=== PATIENT | female | born 1945 | race Caucasian/White ===

== ENCOUNTER 2022-11-30 11:24 | Inpatient (IN) | payer OTHER ==
[~2022-11-30] VITALS: Ht 157.5 cm; Wt 60.9 kg
[~2022-11-30 11:24] MED LIST: ARICEPT10 M1 PO; ATIVAN0.5 MG PO; BENADRYL ALLERG25 M5 PO; CHAMOSYN OINTMEN5 GM T; COMPLETE ALLERG25 M2 PO; DIOVAN HCT 1601 EACH PO; DULCOLAX10 M1 R; HYDR25T PO; LOSARTAN POTAS100 M1 PO; MILK OF MA400 MG/5 M PO; NICOTINE PATCH1 EAC2 TD; REXULTI1 MG PO; ROSUVASTATIN CA40 MG PO; TYLENOL325 M1 PO; VENT7GM INH; VITAMIN D3250 MC1 PO
[2022-11-30 11:25] VITALS: BP 92/56
[2022-11-30 12:41] LABS: POTASSIUM 5.1 mmol/L (3.4-5.1); TOTAL PROTEIN 6.5 gm/dL (6.0-8.0)
[2022-11-30] MEDS ORDERED: LOSARTAN POTAS100 M1 PO (14:47)
[2022-11-30 16:00] VITALS: BP 116/63
[2022-11-30 16:58] LABS: BILIRUBIN Negative (Negative); BLOOD Negative (Negative); CLARITY Clear (Clear); COLOR Yellow (Yellow); GLUCOSE Negative (Negative); KETONE Negative (Negative); LEUKO ESTERASE Negative (Negative); NITRITE Negative (Negative)
[2022-11-30 17:16] LABS: BACTERIA 1+; MUCOUS 2+
[2022-11-30 20:00] VITALS: BP 112/44
[2022-12-01] VITALS: BP 122/54
[2022-12-01 06:57] LABS: BASO % 0.3 % (0.0-1.0); EOS % 0.3 % (1.0-4.0); HEMATOCRIT 32.1 % (37.0-47.0); LYMPH # 1.7 10*3/uL (1.3-4.4); LYMPH % 14.6 % (27.0-41.0); MEAN CELL VOLUME 92.8 fl (81.0-99.0); MEAN CORPUSCULAR HGB 30.1 pg (27.0-31.0); MEAN CORPUSCULAR HGB CONC 32.4 g/dl (33.0-37.0); MEAN PLATELET VOLUME 9.1 fl (9.6-12.3); MONO # 0.7 10*3/uL (0.1-1.0); MONO % 6.4 % (3.0-9.0); NEUT # 8.9 10*3/uL (2.3-7.9); NEUT % 77.9 % (47.0-73.0); PLATELET COUNT AUTOMATED 262 10*3/uL (130-400); RED BLOOD COUNT 3.46 10*6/uL (4.10-5.10); RED CELL DISTRI WIDTH 13.4 % (0-14.5); WHITE BLOOD COUNT 11.4 10*3/uL (4.8-10.8)
[2022-12-01 07:18] LABS: POTASSIUM 4.4 mmol/L (3.4-5.1); TOTAL PROTEIN 5.5 gm/dL (6.0-8.0)
[2022-12-01 08:00] VITALS: BP 110/53
[2022-12-01 12:00] VITALS: BP 131/32
[2022-12-01 16:00] VITALS: BP 114/51
[2022-12-01 20:00] VITALS: BP 106/92
[2022-12-02] VITALS: BP 122/55
[2022-12-02 08:00] VITALS: BP 123/55
[2022-12-02 10:13] LABS: BASO % 0.3 % (0.0-1.0); EOS # 0.1 10*3/uL (0.0-0.4); HEMATOCRIT 34.8 % (37.0-47.0); LYMPH # 2.1 10*3/uL (1.3-4.4); LYMPH % 19.1 % (27.0-41.0); MEAN CELL VOLUME 92.3 fl (81.0-99.0); MEAN CORPUSCULAR HGB 29.7 pg (27.0-31.0); MEAN CORPUSCULAR HGB CONC 32.2 g/dl (33.0-37.0); MONO # 0.7 10*3/uL (0.1-1.0); MONO % 6.7 % (3.0-9.0); NEUT # 7.8 10*3/uL (2.3-7.9); NEUT % 72.5 % (47.0-73.0); PLATELET COUNT AUTOMATED 267 10*3/uL (130-400); RED BLOOD COUNT 3.77 10*6/uL (4.10-5.10); RED CELL DISTRI WIDTH 13.3 % (0-14.5); WHITE BLOOD COUNT 10.8 10*3/uL (4.8-10.8)
[2022-12-02 11:23] LABS: ALKALINE PHOSPHATASE 97 U/L (46-116); BUN 29 mg/dl (9-23); CHLORIDE 113 mmol/L (98-107); POTASSIUM 4.2 mmol/L (3.4-5.1); SGPT/ALT 21 U/L (10-49); TOTAL PROTEIN 6.1 gm/dL (6.0-8.0)
[2022-12-02 12:00] VITALS: BP 112/75
[2022-12-02 16:00] VITALS: BP 134/92
[2022-12-02 20:00] VITALS: BP 128/90
[2022-12-03] VITALS: BP 116/91
[2022-12-03 07:32] LABS: BASO % 0.1 % (0.0-1.0); EOS # 0.1 10*3/uL (0.0-0.4); EOS % 1.3 % (1.0-4.0); HEMATOCRIT 34.3 % (37.0-47.0); LYMPH % 23.9 % (27.0-41.0); MEAN CELL VOLUME 92.5 fl (81.0-99.0); MEAN CORPUSCULAR HGB 30.2 pg (27.0-31.0); MEAN CORPUSCULAR HGB CONC 32.7 g/dl (33.0-37.0); MEAN PLATELET VOLUME 8.8 fl (9.6-12.3); MONO # 0.7 10*3/uL (0.1-1.0); MONO % 8.4 % (3.0-9.0); NEUT # 5.6 10*3/uL (2.3-7.9); NEUT % 65.9 % (47.0-73.0); PLATELET COUNT AUTOMATED 270 10*3/uL (130-400); RED BLOOD COUNT 3.71 10*6/uL (4.10-5.10); WHITE BLOOD COUNT 8.5 10*3/uL (4.8-10.8)
[2022-12-03 08:00] VITALS: BP 98/49
[2022-12-03 08:35] LABS: ALKALINE PHOSPHATASE 95 U/L (46-116); BUN 24 mg/dl (9-23); CHLORIDE 112 mmol/L (98-107); POTASSIUM 4.1 mmol/L (3.4-5.1); SGPT/ALT 25 U/L (10-49); TOTAL PROTEIN 5.8 gm/dL (6.0-8.0)
[2022-12-03 12:00] VITALS: BP 124/50
[2022-12-03 16:00] VITALS: BP 119/50
[2022-12-03 20:00] VITALS: BP 116/61
[2022-12-04] VITALS: BP 128/58
[2022-12-04 08:00] VITALS: BP 92/66
[2022-12-04] MEDS ORDERED: RIVASTIGMINE1 EACH T (10:17)
[2022-12-04] MEDS ORDERED: NAMENDA-5 PO (10:17)
[2022-12-04] MEDS ORDERED: Ipratropium Brom3 ML NEB (10:17)
[2022-12-04] MEDS ORDERED: ATIVAN0.5 MG PO (10:18)
== END 2022-12-04 12:28 | DRG 871 ==
LOC: 5E 11:24
PROVIDERS: Family Medicine; Internal Medicine; Student in an Organized Health Care Education/Training Program; ADMIT Internal Medicine; ATTEND Internal Medicine
DX: A41.9 Sepsis, unspecified organism (principal); G93.41 Metabolic encephalopathy; N17.0 Acute kidney failure with tubular necrosis; J15.9 Unspecified bacterial pneumonia; N39.0 Urinary tract infection, site not specified; J44.0 Chronic obstructive pulmonary disease with (acute) lower respiratory infection; F02.818 Dementia in other diseases classified elsewhere, unspecified severity, with other behavioral disturbance; F02.84 Dementia in other diseases classified elsewhere, unspecified severity, with anxiety; F63.81 Intermittent explosive disorder; G30.9 Alzheimer's disease, unspecified; F41.1 Generalized anxiety disorder; E78.00 Pure hypercholesterolemia, unspecified; F17.210 Nicotine dependence, cigarettes, uncomplicated; N18.32 Chronic kidney disease, stage 3b; I12.9 Hypertensive chronic kidney disease with stage 1 through stage 4 chronic kidney disease, or unspecified chronic kidney disease; S70.12XA Contusion of left thigh, initial encounter; S90.31XA Contusion of right foot, initial encounter; X58.XXXA Exposure to other specified factors, initial encounter; Z90.710 Acquired absence of both cervix and uterus; Z79.899 Other long term (current) drug therapy; Z88.0 Allergy status to penicillin; Z88.8 Allergy status to other drugs, medicaments and biological substances; Y93.89 Activity, other specified; Y92.89 Other specified places as the place of occurrence of the external cause; Y99.8 Other external cause status